=== PATIENT | female | born 1985 | race Caucasian/White ===

== ENCOUNTER 2024-05-31 08:50 | Emergency (ER) | payer OTHER, SELFPAY ==
[2024-05-31 08:51] VITALS: BP 156/99; PULSE 92; RESP 18; TEMP 36.6; O2SAT 100; BMI 18.3
--- NOTE | 2024-05-31 09:02 | EKG12_ITS ---
Test Reason : CP Blood Pressure : */* mmHG Vent. Rate : 83 BPM Atrial Rate : 83 BPM P-R Int : 106 ms QRS Dur : 82 ms QT Int : 358 ms P-R-T Axes : 38 -27 13 degrees QTcB Int : 420 ms Sinus rhythm with short [place] Voltage criteria for left ventricular hypertrophy ( R in aVL , [place]ow-Justice , [place] product ) Nonspecific ST abnormality Abnormal ECG Confirmed by Tony Leggett ([id number]), features editor RADHA WEAVER ([id number]) on 06/01/2024 11:25:48 AM Referred By: JOB Confirmed By: Tony Leggett
--- NOTE | 2024-05-31 09:02 | EDS_ITS ---
HPI History of Present Illness Chief Complaint: General Illness Detail of Chief Complaint: Chest pain and hypertension Informant: patient and parent Narrative Narrative: Patient presents to the emergency department with complaint of chest discomfort that she has had intermittently for about a week. Describes a sharp stabbing pain. Retrosternal. A time she has some numbness in her right arm and the toes of her right foot. Patient denies recent travel or surgery. No significant family history of heart disease other than her her uncle who had a heart attack at similar age to the patient. Patient is a smoker but currently quitting down to 1 cigarette a day. No prior history of PE or DVT. Patient also states that over the last 3 weeks she has noticed elevated blood pressures as she has been to urgent care twice and was told her blood pressure was high. She has a diary of her blood pressures and typically systolics in the 140s to 160s with diastolics in the 80s to 90s. She is scheduled to see a nurse practitioner July 05. Currently not on medication for blood pressure. [facility] Medical History (Updated 05/31/24 @ 11:[address] Candice Salazar, DO) Hypertension Medical History no medical history Home Medications ?Medication ?Instructions ?Recorded ?Last Taken ?Type ketorolac 10 mg tablet 10 mg PO Q6H ##20 04/25/16 U nknown Rx ondansetron 4 mg disintegrating 4 mg PO Q8H PRN PRN Na usea #10 tabs 04/25/16 Unknown Rx tablet oxycodone-acetaminophen 5 mg-325 1 - 2 tab PO Q4H PRN PRN Pain #20 04/25/16 Unknown Rx mg tablet tabs tamsulosin 0.4 mg capsule (Flomax) 0.4 mg PO DAILY ##5 04/25/16 Unknown Rx amlodipine 5 mg tablet (Norvasc) 5 mg PO DAILY #30 tab s 05/31/24 Unknown Rx Allergy/AdvReac Type Severity Reaction Status Date / Time No Known Allergies Allergy Verified 05/31/24 08:53 Family History no significant family his Surgical History (Updated 05/31/24 @ 09:03 by Gwen Hicks) Previous section Social History Smoking Status: Former smoker ROS ROS ED Review of Systems ROS Unobtainable: other Constitutional Constitutional ED: Reports lethargy; Denies chills, fever(s), sweats or weight loss Eyes Eyes: Denies blurry vision, change in vision or diplopia ENT ENT ED: Denies rhinorrhea or sore throat Cardiovascular Cardiovascular: Reports chest pain; Denies orthopnea or racing heartbeat Respiratory/Chest Respiratory/Chest: Denies cough, dyspnea, dyspnea on exertion, orthopnea or sputum Gastrointestinal Gastrointestinal: Denies abdominal pain, diarrhea, nausea or vomiting Genitourinary Genitourinary ED: Denies dysuria, hematuria or urinary frequency Musculoskeletal Musculoskeletal: Denies arthralgias, back pain, myalgias or neck pain Integumentary Denies abscess, Abrasions or rash Neurologic Neurologic: Reports paresthesias; Denies headache(s) or weakness Psychiatric Psychiatric: Denies anxiety, depression or suicidal thoughts Endocrine Endocrinology: Denies polydipsia, polyphagia or polyuria Hematologic/Lymphatic Hematologic/Lymphatic: Denies easy bleeding, easy bruising or lymphadenopathy Allergic/Immunologic Allergic/Immunologic ED: Denies mouth swelling, tongue swelling or urticaria EXAM Physical Exam Const Vital Signs: 05/31/24 08:51 05/31/24 09:03 05/31/24 10:51 Temperature 97.8 F Temperature Source Oral Pulse Rate 92 79 Respiratory Rate 18 16 Respiratory Effort Normal Respiratory Pattern Normal Blood Pressure 156/99 H Blood Pressure Mean 118 Pulse Ox 100 98 Oxygen Delivery Method Room Air Room Air Positive well nourished and well developed General Appearance ED: well developed and NAD HEENT Reports TM's clear and moist mucous membranes normocephalic and atraumatic; Negative for trauma or tenderness Tympanic Membrane ED: Yes TM's clear Eyes PERRL and EOMs intact bilaterally General Eye ED: Negative for pale conjunctiva or scleral icterus Neck no lymphadenopathy, supple and no JVD General: Negative for tenderness Chest Wall inspection of chest normal and palpation of chest normal Chest: Negative for tenderness Resp normal respiratory effort and clear to auscultation bilaterally Effort and Inspection: Negative for respiratory distress or pain with movement Auscultation: Negative for rhonchi, wheezes or diminished lung sounds Cardio regular rate, regular rhythm, S1 normal heart sound, S2 normal heart sound and no murmurs Peripheral Pulses: pulses 2+ throughout GI normal to inspection, nondistended, normoactive bowel sounds, soft to palpation, non-tender, non-distended and no masses Back/Spine no CVA tenderness and no thoracic nor lumbar tenderness Extremity normal to inspection General Extremety ED: Negative for edema General Extremity: Negative for edema Neuro oriented x3, CN's II-XII intact bilaterally, no sensory deficits noted and gait normal Sensorium / Orientation: awake, alert, oriented to person, oriented to place and oriented to time Motor Exam: strength 5/5 throughout and strength abnormal Psych mental status grossly normal Skin no rashes or lesions noted and no wounds MDM MDM MDM Narrative Medical decision making narrative: Patient presents with chest pain that she has had for over a week. Pain sharp at times. In the differential would be chest wall pain versus pleurisy or pericarditis. Also anxiety would be on the differential. Her blood pressures also been elevated. Low suspicion for acute coronary syndrome. EKG obtained arrival showed sinus rhythm with ventricular rate of 83 bpm with voltage criteria for LVH. CBC with differential obtained showing an 11.3 with hemoglobin 14.2 and platelet count of 262. Chemistries unremarkable. Troponin was less than 6. D-dimer normal at 0.27. Urinalysis was normal. 1 view chest x-ray was unremarkable. At this point etiology of her chest pain unclear. Blood pressure did improve into the 138 range systolic over 70s diastolic. Patient states this is the lowest it has been in 3 weeks. I will go ahead and start her on low-dose Norvasc until she follows up with primary care physician. Lab Data Attestation: I reviewed the patient's lab results. Labs: Laboratory Results - last 24 hr 05/31/24 05/31/24 09:15 09:24 WBC 11.3 H RBC 4.54 Hgb 14.2 Hct 40.8 MCV 89.9 MCH 31.3 MCHC 34.8 RDW Std Deviation 40.7 RDW Coeff of Omar 12.3 Plt Count 262 MPV 9.2 Immature Gran % (Auto) 0.400 Neut % (Auto) 80.1 H Lymph % (Auto) 13.2 L [place] % (Auto) 5.4 Eos % (Auto) 0.4 Baso % (Auto) 0.5 Absolute Neuts (auto) 9.1 H Absolute Lymphs (auto) 1.50 Nucleated RBC % 0 D-Dimer Quant (PE/DVT) 0.27 Sodium 136 Potassium 3.6 Chloride 101 Carbon Dioxide 21.8 Anion Gap 13 BUN 11 Creatinine 0.87 Estim Creat Clear Calc 73.77 Est GFR (MDRD) Non-Af 88 BUN/Creatinine Ratio 12.9 Glucose 161 H Calcium 9.4 Troponin T High Sens < 6 Urine Color Straw Urine Clarity Clear Urine pH 6.5 Ur Specific [place] 1.005 Urine Protein 15 H Urine Glucose (UA) Normal Urine Ketones Negative Urine Occult Blood 25 H Urine Nitrite Negative Urine Bilirubin Negative Urine Urobilinogen Normal Ur Leukocyte Esterase Negative Urine RBC 0 SEEN Urine WBC 0 SEEN Ur Squamous Epith Cells 0-5 SEEN Urine Bacteria 0 SEEN Urine Mucus 0 SEEN Radiography Diagnostic Testing: Clinical Impression(s) from Imaging Studies Chest X-Ray 05/31/24 09:35 IMPRESSION: Negative Chest. Reading Location: [place] [id number] 1 view chest x-ray obtained and I am unable to visualize images as we have had downtime for our PACS system and I am reliant upon the radiologist interpretation EKG Initial EKG: Attestation: I personally reviewed and interpreted this EKG as follows: Comments: Sinus rhythm with ventricular rate of 83 bpm with LVH Discharge Plan Triage Chief Complaint: General Illness ED Provider: Candice Salazar Dx/Rx/DC Orders Clinical Impression: Hypertension, Chest pain Instructions: ED Chest Pain, Uncertain Cause, ED Hypertension New Begin Treatment Prescriptions: New amlodipine [Norvasc] 5 mg tablet 5 mg PO DAILY Qty: 30 0RF No Action oxycodone-acetaminophen 1 TABLET tablet 1 - 2 tab PO Q4H PRN PRN (Reason: Pain) Qty: 20 0RF ketorolac 10 MG tablet 10 mg PO Q6H Qty: 20 0RF tamsulosin [Flomax] 0.4 MG capsule 0.4 mg PO DAILY Qty: 5 0RF ondansetron 4 MG tablet 4 mg PO Q8H PRN PRN (Reason: Nausea) Qty: 10 0RF Primary Care Provider: Care Physician,No Primary Referrals: Care Physician,No Primary [Primary Care Provider] - Activity Restrictions/Additional Instructions: Keep your appointment with primary care. Print Language: Japanese Disposition Disposition: Home, Self Care
[2024-05-31 09:21] LABS: Bacteria 0 SEEN /hpf (None Seen); Mucous, Urine 0 SEEN /hpf (<or=2+); Red Blood Cells-Urine 0 SEEN /hpf (0-5); White Blood Cells 0 SEEN /hpf (0-5)
--- NOTE | 2024-05-31 09:35 | RAD_ITS ---
PROCEDURE: CHEST 1 VIEW (PORTABLE) 05/31/2024 REASON FOR EXAM: CHEST PAIN INTERMITTENT X3 WEEKS TECHNIQUE: Frontal view of the chest. COMPARISON: None available at this time. FINDINGS: Hardware: None Heart: Cardiac and mediastinal contours are stable. Lungs: No significant change in the appearance of the lungs. Bones: The bones are unremarkable. Other: RAD/Chest 1 View (Portable) IMPRESSION: Negative Chest. Reading Location: [place] [id number]
[2024-05-31 09:38] LABS: Absolute Neutrophil Count 9.1 X10^3/uL (2.0-7.7); Basophil# 0.06 X10^3/uL; Basophil% 0.5 % (0-1); Eosinophil# 0.04 X10^3/uL; Eosinophils% 0.4 % (0-5); Hematocrit 40.8 % (37-47); Hemoglobin 14.2 g/dL (12.0-15.0); Lymphocyte % 13.2 % (19-41); Mean Corp Hgb Conc 34.8 g/dL (32-36); Mean Corpuscular Hgb 31.3 pg (27.0-32.0); Mean Corpuscular Volume 89.9 fL (81-99); Mean Platelet Vol. 9.2 fl (6.2-12.0); Monocyte# 0.61 X10^3/uL; Monocyte% 5.4 % (0-10); NRBC Flagged by Analyzer 0 % (0-5); Neutrophil # 9.09 X10^3/uL (2.7-7.7); Neutrophil % 80.1 % (47-70); Platelet Count 262 K/mm3 (150-450); RBC Distribution Width CV 12.3 % (11.6-14.6); RBC Distribution Width SD 40.7 fl (35.1-43.9); Red Blood Count 4.54 M/mm3 (4.2-5.4); White Blood Count 11.3 K/mm3 (4.4-11.0)
[2024-05-31 09:46] LABS: Color, Urine Straw (Yellow); Glucose, Dipstick Normal (Normal); Ketone-Dipstick Negative (Negative); Leukocyte Esterase-Dipstick Negative /ul (Negative); Nitrite-Dipstick Negative (Negative); Occult Blood-Urine 25 /ul (Negative); Protein-Dipstick 15 mg/dl (Negative); Specific Gravity, Urine 1.005 (1.002-1.030); Urine Bilirubin Dipstick Negative (Negative); Urine Clarity Clear (Clear); Urine Urobilinogen Normal (Normal); Urine pH 6.5 (5.0 - 8.0)
[2024-05-31 09:48] LABS: D-Dimer Quantitative (DVT/PE) 0.27 FEU/ug/m (0.27-0.49)
[2024-05-31 09:55] LABS: Squamous Epithelial Cells - UA 0-5 SEEN /hpf (5-10)
[2024-05-31 10:22] LABS: Anion Gap 13 (5-15); BUN 11 mg/dL (4-19); BUN/Creat Ratio 12.9 RATIO (10-20); Calcium,Total 9.4 mg/dL (7.6-11.0); Carbon Dioxide 21.8 mmol/L (21.0-32.0); Chloride 101 mmol/L (98-108); Creatinine, Serum 0.87 mg/dL (0.70-1.20); EST Glomerular Filtration Rate 88 (>60); Estimated Creatinine Clearance 73.77 ml/min (50-250); Glucose 161 mg/dL (70-99); Potassium 3.6 mmol/L (3.3-5.1); Sodium Level 136 mmol/L (133-145); Troponin T High Sensitivity < 6 ng/L (<=14)
[2024-05-31 10:51] VITALS: PULSE 79; RESP 16; O2SAT 98
[2024-05-31 11:28] VITALS: BP 141/70; PULSE 78; RESP 16; TEMP 36.6; O2SAT 99
--- NOTE | 2024-05-31 11:51 | CM.ED ---
Social work Reason for referral: no PCP Referral source: case find This SW identified patient's lack of PCP and need for resources. This SW entered patient's room, introducing self and role at [facility]. Patient accepted SW visit and introduced patient's mother, Ruma, who was bedside. Patient gave permission to speak in front of patient's mother and patient confirmed currently lacking a PCP. Patient stated having a PCP appointment set up through the [facility] for July 05, but patient stated wanting to stay connected to [facility] doctors if possible. Patient accepted resources of [facility] Provider Directory and [facility] [place] information to see if patient could get a sooner initial appointment. Patient denied further needs at this time. Rhonda Felton, RN GASTROENTEROLOGY, [employer]
== END 2024-05-31 11:29 | disposition home or self-care (01) ==
PROVIDERS: Emergency Provider Emergency Medicine; Visit Provider Emergency Medicine
DX: I10 Essential (primary) hypertension (principal); R07.9 Chest pain, unspecified; F17.210 Nicotine dependence, cigarettes, uncomplicated; Z79.899 Other long term (current) drug therapy; R20.2 Paresthesia of skin
CPT/HCPCS: 71045; 80048; 81001; 84484; 85025; 85379; 93005; 99284; A4216